=== PATIENT | female | born 1960 | race Caucasian/White ===

== ENCOUNTER 2018-01-21 13:03 | Day surgery (SDC) | payer BC ==
[2018-01-21] MEDS ORDERED: FENTAnyl 50 MCG/ML VIAL (15:31)
[2018-01-21] MEDS ORDERED: MIDAZOLAM 1 MG/ML 2 ML INJ ×2 (15:31)
== END 2018-01-21 16:06 | disposition home or self-care (01) ==
LOC: GIL 13:03
DX: Z12.11 Encounter for screening for malignant neoplasm of colon (principal)
CPT/HCPCS: 45378